=== PATIENT | male | born 1960 | race Caucasian/White ===

== ENCOUNTER 2017-04-26 08:02 | Emergency (ER) | payer OTHER ==
[2017-04-26 08:28] VITALS: BP 164/100
--- NOTE | 2017-04-26 08:50 | EDM.PDOC ---
[id number] 4d SLIP ON DOCK Time Seen by Provider: 04/26/17 08:30 Source of Information: Reports: Patient History Limitations: Reports: No Limitations - History of Present Illness INITIAL COMMENTS - FREE TEXT/NARRATIVE: 57-year-old otherwise healthy male slipped on a dock yesterday striking his left flank hard on the wooden surface. He's been able to breathe with some discomfort, denies any abdominal pain, developed no significant bruising or shortness of breath. He was able to eat normally last evening. It's really sore today and he is just concerned he may have broken a rib and wanted to be checked before he flies back home. Onset: Sudden (Yesterday) Location: Reports: Chest (And left flank) Severity: Moderate Associated Symptoms: Reports: No Other Symptoms - Related Data Allergies Allergy/AdvReac Type Severity Reaction Status Date / Time No Known Allergies Allergy Verified 04/26/17 08:27 Home Meds: Home Meds Pravastatin [Pravachol] 04/26/17 [History] Ramipril [Altace] 04/26/17 [History] amLODIPine Besylate [Norvasc] 04/26/17 [History] Past Medical History - Past Surgical History HEENT Surgical History: Reports: Eye Surgery Social & Family History - Tobacco Use Smoking Status *Q: Never Smoker ED ROS GENERAL - Review of Systems Review Of Systems: See Below Constitutional: Denies: Fever, Chills HEENT: Reports: No Symptoms Respiratory: Reports: Pleuritic Chest Pain Cardiovascular: Reports: Chest Pain GI/Abdominal: Denies: Abdominal Pain, Nausea, Vomiting : Reports: No Symptoms Skin: Reports: No Symptoms Neurological: Reports: No Symptoms Psychiatric: Reports: No Symptoms ED EXAM, GENERAL - Physical Exam Exam: See Below Exam Limited By: No Limitations General Appearance: Alert, No Apparent Distress (Patient is very uncomfortable but not distressed) Respiratory/Chest: No Respiratory Distress, Lungs Clear, Other (He is very sore to palpation over the left flank area of the chest wall, no crepitus). No: Decreased Breath Sounds GI/Abdominal: Non-Tender Neurological: Alert, Oriented Skin Exam: Warm, Dry, Other (No bruising over injured area) Course - Vital Signs Last Recorded V/S: Last Vital Signs Temp 97.2 F 04/26/17 08:33 Pulse 81 04/26/17 08:33 Resp 16 04/26/17 08:33 BP 164/100 H 04/26/17 08:33 Pulse Ox 98 04/26/17 08:33 - Orders/Labs/Meds Orders: Active Orders 24 hr Category Date Time Status Vaccines to be Administered [RC] PER UNIT ROUTINE Care 04/26/17 09:02 Active Chest 2V [CR] Routine Exams 04/26/17 08:37 Taken Meds: Medications Discontinued Medications Generic Name Dose Route Start Last Admin Trade Name Destiny PRN Reason Stop Dose Admin Diphtheria/Tetanus/Acell Pertussis 0.5 ml 04/26/17 09:02 04/26/17 09:09 Adacel IM 04/26/17 09:03 0.5 ml .ONCE ONE Administration - Re-Assessments/Exams Free Text/Narrative Re-Assessment/Exam: 04/26/17 08:50 A two-view chest x-ray was obtained. 04/26/17 09:03 Chest x-ray confirmed a lateral 10th rib fracture as well as a slight contusion of the lung in the left costophrenic angle. These were shown to the patient, and he was given a copy of his film. He was given 10 hydrocodone for extra pain control and encouraged to take naproxen, ice down sore areas and given a TDap for a small cut that he got on his foot that was incidental. Departure - Departure Time of Disposition: 09:20 Disposition: Home, Self-Care 01 Condition: Good Clinical Impression: Closed rib fracture Qualifiers: Encounter type: initial encounter Rib fracture type: single rib Laterality: left Qualified Code(s): S22.32XA - Fracture of one rib, left side, initial encounter for closed fracture - Discharge Information Instructions: Rib Fracture, [id number] Referrals: PCP,None [Primary Care Provider] - Forms: ED Department Discharge Care Plan Goals: Ice to sore areas, naproxen for pain and add stronger pain medications if needed. Increase activity as tolerated and recheck at any time if you feel you are worsening or develop other concerns. - My Orders Last 24 Hours: My Active Orders 04/26/17 08:37 Chest 2V [CR] Routine 04/26/17 09:02 Vaccines to be Administered [RC] PER UNIT ROUTINE - Assessment/Plan Last 24 Hours: My Active Orders 04/26/17 08:37 Chest 2V [CR] Routine 04/26/17 09:02 Vaccines to be Administered [RC] PER UNIT ROUTINE
[2017-04-26] MEDS ORDERED: Diphtheria,Pertussis(Acell),Tetanus Vaccine 0.5 ML SDV IM ONE (09:02)
--- NOTE | 2017-04-27 11:50 | CR ---
Heart size within normal limits. No focal consolidation. A definitive rib fracture is not evident. S ymptomatically consider dedicated rib films. No pneumothorax ..
== END 2017-04-26 09:20 | disposition home or self-care (01) ==
LOC: JP.ED 08:02
DX: S22.32XA Fracture of one rib, left side, initial encounter for closed fracture (principal); Z23 Encounter for immunization; W22.8XXA Striking against or struck by other objects, initial encounter
CPT/HCPCS: 71020; 71020-26; 90471; 90715; 99284-25